=== PATIENT | female | born 2005 | race Caucasian/White ===

== ENCOUNTER → 2024-05-05 | Outpatient (CLI) | payer BC ==
--- NOTE | 2024-05-16 13:28 | US ---
EXAMINATION TYPE: US transvaginal DATE OF EXAM: 05/05/2024 COMPARISON: NONE CLINICAL INDICATION: Female, 19 years old with history of n92.1 excessive and frequent menstruation; Irregular menses since menarche, heavy bleeding x 1 month with sharp adnexal pain and painful interco urse TECHNIQUE:. Transvaginal sonographic images were ordered Date of LMP: unknown EXAM MEASUREMENTS: Uterus: 7.1 x 2.6 x 4.3 cm Endometrial Stripe: 0.5 cm Right Ovary: 3.1 x 2.2 x 2.8 cm-10 mL Left Ovary: 3.5 x 2.6 x 3.2 cm-15 mL 1. Uterus: Anteverted wnl 2. Endometrium: Heterogenous 3. Right Ovary: Rounded with ?string of pearls ; ? concern for PCOS 4. Left Ovary: Rounded with ?string of pearls ; ? concern for PCOS 5. Bilateral Adnexa: wnl 6. Posterior cul-de-sac: wnl Multiple nabothian cysts within cervix. Normal thickness endometrium. IMPRESSION: 1. No ultrasound evidence of acute process. 2. Mild enlargement of both ovaries with peripheral follicles identified. Findings raise possibility of PCOS. Correlate clinically.
== END | disposition home or self-care (01) ==
LOC: RADUSWWP 07:30
PROVIDERS: ATTEND Family Medicine
DX: N92.1 Excessive and frequent menstruation with irregular cycle (principal); N83.9 Noninflammatory disorder of ovary, fallopian tube and broad ligament, unspecified; N94.10 Unspecified dyspareunia; N92.0 Excessive and frequent menstruation with regular cycle
CPT/HCPCS: 76830

== ENCOUNTER → 2024-08-23 | Outpatient (CLI) | payer BC ==
--- NOTE | 2024-09-28 11:50 | EM ---
30 Day Event monitor note: Patient wore an event monitor for 28 days from 08/23/2024 through 09/21/2024. Findings: Patient's baseline heart rate was normal sinus rhythm. There were no signficant atrial fibrillation, atrial flutter episodes. There were no significant pauses greater than 2 seconds. There were rare PACs and PVCs representing 1% PVC burden. Average heart rate 71 bpm Minimum heart rate 42 bpm during sleeping hours Highest heart rate 170 bpm There were 7 patient activated events including lightheadedness and chest pain corresponding with normal sinus rhythm There was one 6 beat run of nonsustained VT versus possible artifact Conclusions: 28 day monitor showing normal sinus rhythm and rare PACs and PVCs. Patient activated events correlating with normal sinus rhythm. One 6 beat run of nonsustained VT versus possible artifact. MTDD
== END | disposition home or self-care (01) ==
LOC: RADECHMAIN 07:51
PROVIDERS: ATTEND Family Medicine
DX: I47.10 Supraventricular tachycardia, unspecified (principal)
CPT/HCPCS: 93270

== ENCOUNTER 2024-11-30 07:08 | Day surgery (SDC) | payer BC ==
[2024-11-30 07:35] VITALS: BP 110/69; PULSE 63; RESP 16; TEMP 98.6
[2024-11-30] MEDS ORDERED: SODIUM CHLORIDE 0.9% 1,000 ML IV SCH (08:00)
[2024-11-30] MEDS: IV FLUID CONTINUATION 1,000 ML IV ONE (08:58)
--- NOTE | 2024-11-30 12:09 | P.EPPROC ---
- EP Procedure Note Electrophysiology Procedure Note: Indication for the procedure Recurrent presyncope Twelve-lead EKG shows sinus mechanism 52 beats a minute normal PA narrow QRS normal ST segments early repolarization abnormality absence of delta waves Normal QT interval Tilt table test per protocol Baseline blood pressure 102/61 mmHg pulse rate 44 beats a minute Patient was tilted upright on maculas 70 degrees per protocol There was no significant change in heart rate or blood pressure Blood pressure remained between 95 205 mmHg systolic No arrhythmias noted no significant change in heart rate Impression Normal twelve-lead EKG No evidence for neurocardiogenic syncope or dysautonomia or orthostatic intolerance
== END 2024-11-30 10:25 | disposition home or self-care (01) ==
LOC: CATHEP 07:08
PROVIDERS: ATTEND Internal Medicine Clinical Cardiac Electrophysiology
DX: R55 Syncope and collapse (principal); R94.31 Abnormal electrocardiogram [ECG] [EKG]
CPT/HCPCS: 81025; 93660